=== PATIENT | female | born 1935 | race Caucasian/White ===

== ENCOUNTER 2024-06-06 06:32 | Day surgery (SDC) | payer MEDICARE, BC ==
[2024-06-05 10:42] VITALS: BMI 29.0
[2024-06-06] MEDS ORDERED: Lidocaine 1% MPF 2 ML VIAL ONE (06:53)
[2024-06-06 07:20] LABS: #Basophils 0.04 10x3/uL (0.0-0.2); %Basophils 0.7 % (0.0-1.0); %Eosinophils 1.8 % (0.0-10.0); %Lymphocytes 18.6 % (21.0-51.0); %Monocytes 8.4 % (0.0-10.0); %Neutrophils 70.5 % (42.0-75.0); Hemoglobin 13.7 g/dL (12.0-16.0); Mean Corpuscular HGB CONC 33.4 g/dL (32.0-36.0); Mean Corpuscular Hemoglobin 31.9 pg (27.0-31.0); Mean Corpuscular Volume 95.3 fL (78.0-98.0); Mean Platelet Volume 8.6 fL (7.4-10.4); Platelet Count 155 10x3/uL (130-400)
[2024-06-06 07:39] LABS: Anion Gap 15 mmol/L (10-20); BUN (Urea Nitrogen) 24 mg/dL (9.8-20.1); Calc. Creatinine Clearance 36 mL/min (70-130); Calcium 9.2 mg/dL (7.8-10.44); Carbon Dioxide 22 mmol/L (23-31); Chloride 107 mmol/L (98-107); Estimated GFR 31; Glucose 92 mg/dL (83-110); Potassium 3.7 mmol/L (3.5-5.1); Sodium 140 mmol/L (136-145)
[2024-06-06] MEDS ORDERED: Lidocaine 1% PF 5 ML VIAL ONE (08:02)
[2024-06-06] MEDS ORDERED: PROPOFOL 20 ML ONE (08:02)
[2024-06-06] MEDS ORDERED: fentaNYL PF 100 MCG/2 ML SYRINGE ONE ×2 (08:02→11:04)
[2024-06-06] MEDS ORDERED: Rocuronium Bromide 10 MG/ML (10ML VIAL) ONE (08:02)
[2024-06-06] MEDS ORDERED: Bupivacaine PF 0.5% 30 ML VIAL ONE (08:22)
[2024-06-06] MEDS ORDERED: EPINEPHrine 1 MG/ML VIAL ONE (08:22)
[2024-06-06] MEDS ORDERED: Thrombin 5000 UNITS/5 ML VIAL ONE (09:18)
[2024-06-06] MEDS ORDERED: CEFAZOLIN 2 GM VIAL ONE ×2 (09:28→14:22)
[2024-06-06] MEDS ORDERED: Ondansetron PF 4 MG/2 ML Vial ONE (10:58)
[2024-06-06] MEDS ORDERED: Dexamethasone 20 MG/5 ML VIAL ONE (10:58)
[2024-06-06] MEDS ORDERED: Sterile Water 10 ML ONE (10:58)
[2024-06-06] MEDS ORDERED: ePHEDrine Sulfate 50 MG/10 ML VIAL ONE (10:59)
[2024-06-06] MEDS ORDERED: SUGAMMADEX SODIUM 200 MG/2 ML VIAL ONE (11:11)
[2024-06-06] MEDS ORDERED: fentaNYL 50 mcg/mL 1 mL Vial ONE (11:46)
[2024-06-06] MEDS ORDERED: HYDROmorphone 0.5 MG/0.5 ML SYRINGE ONE ×2 (12:10→12:22)
== END 2024-06-06 15:32 | disposition home or self-care (01) ==
LOC: SDC 06:32
PROVIDERS: ATTEND Neurological Surgery
PROC: 00NY0ZZ Release Lumbar Spinal Cord, Open Approach (ICD-10-PCS; principal; 2024-06-06)
PROC: 0QB00ZZ Excision of Lumbar Vertebra, Open Approach (ICD-10-PCS; 2024-06-06)
PROC: 0PB40ZZ Excision of Thoracic Vertebra, Open Approach (ICD-10-PCS; 2024-06-06)
DX: M48.062 Spinal stenosis, lumbar region with neurogenic claudication (principal); I11.9 Hypertensive heart disease without heart failure; I48.91 Unspecified atrial fibrillation; I25.10 Atherosclerotic heart disease of native coronary artery without angina pectoris; G62.9 Polyneuropathy, unspecified; G47.30 Sleep apnea, unspecified; Z96.653 Presence of artificial knee joint, bilateral; Z87.891 Personal history of nicotine dependence; Z90.49 Acquired absence of other specified parts of digestive tract; Z90.89 Acquired absence of other organs; Z79.01 Long term (current) use of anticoagulants; Z79.899 Other long term (current) drug therapy
CPT/HCPCS: 22101; 22102; 63047; 63048; 80048; 85025; J0171; J0665; J1100; J2405; J2704; J3010; 36415